=== PATIENT | female | born 1955 | race Caucasian/White ===

== ENCOUNTER 2021-09-01 14:35 | Inpatient (IN) ==
[2021-09-01] MEDS ORDERED: *HR* Adenosine 6 MG/2 ML SYRINGE IVP ONE (14:48)
[2021-09-01] MEDS ORDERED: 0.9 % Sodium Chloride 1,000 ML ONE (14:48)
[2021-09-01] MEDS ORDERED: Aspirin 325 MG TABLET PO ONE (14:54)
[2021-09-01] MEDS ORDERED: *HR* Adenosine 6 MG/2 ML VIAL IVP ONE (14:54)
[2021-09-01 15:26] LABS: Immature Granulocytes % 0.4 % (0-4)
[2021-09-01 15:27] LABS: Basophils % 0.2 %; Eosinophils # 0.3 K/mcL (0.0-0.6); Eosinophils % 2.3 %; Hematocrit 34.3 % (35.3-44.9); Hemoglobin 9.5 g/dL (11.5-15.4); Lymphocytes % 13.3 %; Mean Corpuscular HGB Conc 27.7 g/dL (31.6-35.5); Mean Corpuscular Hemoglobin 22.9 pg (28.0-33.3); Mean Corpuscular Volume 82.9 fL (83.0-100.0); Mean Platelet Volume 8.4 fL (9.4-12.4); Monocytes % 4.4 %; Platelet Count 640 K/mcL (140-400); Red Blood Count 4.14 M/mcL (3.82-4.97); Segmented Neutrophils % 79.4 %; White Blood Count 12.4 K/mcL (4.3-11.1)
[2021-09-01 15:41] LABS: INR 1.3; Prothrombin Time 14.6 Seconds (9.4-12.1)
[2021-09-01 15:43] LABS: BUN/Creatinine Ratio 15 (6-26); Blood Urea Nitrogen 17 mg/dL (8-23); Calcium 8.6 mg/dL (8.6-10.3); Carbon Dioxide 25 mEq/L (23-29); Chloride 101 mEq/L (98-107); Glucose 168 mg/dL (70-105); Magnesium 1.1 mg/dL (1.6-2.6); Osmolality,Calculated 293 (280-300); Potassium 3.2 mEq/L (3.5-5.1); Sodium 139 mEq/L (136-145); eGFR For African Americans > 60 (> 60); eGFR For Non-African Americans 50 (> 60)
[2021-09-01 15:44] LABS: Activated Partial Thrombo Time 30.2 Seconds (26.0-36.0); Troponin I < 0.03 ng/mL (< 0.04)
[2021-09-01 15:45] LABS: Lymphocytes # 1.7 K/mcL (0.6-4.6); Monocytes # 0.6 K/mcL (0.0-1.3); Neutrophils # 9.9 K/mcL (1.6-8.9)
[2021-09-01 15:56] LABS: Thyroid Stimulating Hormone 3.682 mcIU/mL (0.340-5.600)
[2021-09-01 16:51] LABS: Hypochromasia Present (Not Present); Microcytosis Present (Not Present); Platelet Estimate Marked Increase (Normal)
[2021-09-01] MEDS ORDERED: Potassium Chloride Elixir 20 MEQ/15 ML UDC PO ONE (17:29)
[2021-09-01] MEDS ORDERED: Ondansetron 4 MG/2 ML VIAL IVP PRN (17:52)
[2021-09-01] MEDS ORDERED: Naloxone 0.4 MG/ML INJ IVP PRN (17:52)
[2021-09-01] MEDS ORDERED: Dextrose Gel 15 GM/37.5 ML TUBE PO PRN ×2 (17:54)
[2021-09-01] MEDS ORDERED: D5% in Water 1,000 ML IVC PRN (17:54)
[2021-09-01] MEDS ORDERED: *HR* Dextrose 50 % in Water (Syg) 50 ML SYRINGE IVP PRN (17:54)
[2021-09-01] MEDS ORDERED: Perflutren Lipid Microsphere 1.3 ML in 0.9 % Sodium Chloride 8.7 ML IVP PRN (17:55)
[2021-09-01] MEDS: 0.9 % Sodium Chloride 1,000 ML IVC SCH (20:16)
[2021-09-01] MEDS: Melatonin 3 MG TABLET PO PRN (20:16)
[2021-09-01] MEDS: DilTIAZem 50 MG/50 ML IV.SOLN IVC SCH ×2 (20:17→23:37)
[2021-09-01] MEDS: *HR* Heparin 5,000 UNIT/ML VIAL SQ SCH (20:17)
[2021-09-02] MEDS: 0.9 % Sodium Chloride 1,000 ML IVC SCH (00:49)
[2021-09-02 02:39] LABS: Basophils % 0.3 %; Immature Granulocytes % 0.4 % (0-4); Mean Platelet Volume 8.4 fL (9.4-12.4)
[2021-09-02 02:40] LABS: Eosinophils # 0.3 K/mcL (0.0-0.6); Eosinophils % 3.2 %; Hematocrit 30.2 % (35.3-44.9); Hemoglobin 8.1 g/dL (11.5-15.4); Lymphocytes # 2.8 K/mcL (0.6-4.6); Mean Corpuscular HGB Conc 26.8 g/dL (31.6-35.5); Mean Corpuscular Hemoglobin 22.4 pg (28.0-33.3); Mean Corpuscular Volume 83.7 fL (83.0-100.0); Monocytes # 0.5 K/mcL (0.0-1.3); Monocytes % 4.9 %; Neutrophils # 5.9 K/mcL (1.6-8.9); Platelet Count 550 K/mcL (140-400); Red Blood Count 3.61 M/mcL (3.82-4.97); Red Cell Distribution Width 18.1 % (11.5-14.5); Segmented Neutrophils % 62.2 %; White Blood Count 9.5 K/mcL (4.3-11.1)
[2021-09-02 02:42] LABS: Hypochromasia Present (Not Present); Platelet Estimate Increased (Normal)
[2021-09-02 03:02] LABS: BUN/Creatinine Ratio 15 (6-26); Blood Urea Nitrogen 16 mg/dL (8-23); Calcium 8.1 mg/dL (8.6-10.3); Carbon Dioxide 27 mEq/L (23-29); Chloride 105 mEq/L (98-107); Glucose 98 mg/dL (70-105); Iron 19 mcg/dL (50-170); Lactate Dehydrogenase 139 Units/L (140-271); Magnesium 1.2 mg/dL (1.6-2.6); Osmolality,Calculated 293 (280-300); Phosphorous 3.5 mg/dL (2.7-4.5); Potassium 2.9 mEq/L (3.5-5.1); Sodium 141 mEq/L (136-145); eGFR For African Americans > 60 (> 60); eGFR For Non-African Americans 53 (> 60)
[2021-09-02 03:24] LABS: Folate 9.4 ng/mL (3.0-16.0)
[2021-09-02] MEDS: *HR* Heparin 5,000 UNIT/ML VIAL SQ SCH (05:36)
[2021-09-02] MEDS ORDERED: *HR* Heparin 5,000 UNIT/ML VIAL SQ SCH (06:00)
[2021-09-02] MEDS ORDERED: Isovue-370 500 ML BOTTLE IVP ONE (07:32)
[2021-09-02] MEDS ORDERED: Iron Sucrose Complex 400 MG in 0.9 % Sodium Chloride 250 ML IVPB ONE (07:33)
[2021-09-02] MEDS: Cyanocobalamin (B-12) 1,000 MCG/ML VIAL SQ SCH (09:20)
[2021-09-02] MEDS: Insulin LISPRO 300 UNITS/3 ML VIAL SUBQ SCH ×3 (09:20→17:41)
[2021-09-02 11:56] LABS: Adenovirus Not Detected (Not Detect); Bordetella Pertussis Not Detected (Not Detect); Chlamydophila pneumoniae Not Detected (Not Detect); Coronavirus 229E Not Detected (Not Detect); Coronavirus HKU1 Not Detected (Not Detect); Coronavirus NL63 Not Detected (Not Detect); Coronavirus OC43 Not Detected (Not Detect); Human Metapneumovirus Not Detected (Not Detect); Human Rhinovirus/Enterovirus Not Detected (Not Detect); Influenza A Subtype 2009 H1 Not Detected (Not Detect); Influenza B Not Detected (Not Detect); Mycoplasma pneumoniae Not Detected (Not Detect); Parainfluenza Virus 1 Not Detected (Not Detect); Parainfluenza Virus 2 Not Detected (Not Detect); Parainfluenza Virus 3 Not Detected (Not Detect); Parainfluenza Virus 4 Not Detected (Not Detect); Respiratory Syncytial Virus Not Detected (Not Detect); SARS-CoV-2 Not Detected (Not Detect)
[2021-09-02] MEDS ORDERED: *HR* Heparin 5,000 UNIT/ML VIAL IVP PRN ×2 (12:08)
[2021-09-02] MEDS ORDERED: Heparin 25,000 UNIT/250 ML 25,000 UNIT/250 ML IV.SOLN IVC SCH (12:15)
[2021-09-02 13:02] LABS: Heparin anti-factor XA UFH < 0.04 IU/mL (0.30-0.70)
[2021-09-02 13:03] LABS: INR 1.2; Prothrombin Time 13.1 Seconds (9.4-12.1)
[2021-09-02] MEDS: Furosemide 20 MG TABLET PO SCH (13:19)
[2021-09-02 14:01] LABS: Hemoglobin 8.5 g/dL (11.5-15.4); Immature Granulocytes % 0.3 % (0-4)
[2021-09-02 14:02] LABS: Basophils % 0.3 %; Eosinophils # 0.4 K/mcL (0.0-0.6); Eosinophils % 4.2 %; Hematocrit 30.8 % (35.3-44.9); Lymphocytes # 2.4 K/mcL (0.6-4.6); Lymphocytes % 27.7 %; Mean Corpuscular HGB Conc 27.6 g/dL (31.6-35.5); Mean Corpuscular Hemoglobin 23.1 pg (28.0-33.3); Mean Corpuscular Volume 83.7 fL (83.0-100.0); Mean Platelet Volume 8.3 fL (9.4-12.4); Monocytes # 0.4 K/mcL (0.0-1.3); Monocytes % 4.2 %; Neutrophils # 5.5 K/mcL (1.6-8.9); Platelet Count 510 K/mcL (140-400); Red Blood Count 3.68 M/mcL (3.82-4.97); Segmented Neutrophils % 63.3 %; White Blood Count 8.7 K/mcL (4.3-11.1)
[2021-09-02 14:49] LABS: Anisocytosis 1+ (Not Present); Hypochromasia Present (Not Present); Platelet Estimate Normal (Normal); Poikilocytosis 1+ (Not Present)
[2021-09-02] MEDS: Gabapentin 300 MG CAPSULE PO SCH ×2 (15:32→20:56)
[2021-09-02] MEDS: Melatonin 3 MG TABLET PO PRN (20:55)
[2021-09-02] MEDS: Melatonin 3 MG TABLET PO SCH (22:20)
[2021-09-03 01:55] LABS: Bacteria,Urine Few per hpf (None-Few); Bilirubin,Urine Negative (Negative); Blood,Urine Moderate (Negative); Clarity,Urine Turbid (Clear); Color,Urine Light-Yellow (Yellow); Glucose,Urine (UA) Normal (Normal); Ketones,Urine Negative (Negative); Leukocyte Esterase,Urine Large (Negative); Mucus,Urine Many per lpf (None-Few); Nitrite,Urine Negative (Negative); Protein,Urine Trace mg/dL (Neg-Trace); RBC,Urine 30-50 per hpf (0-3); Specific Gravity,Urine 1.016 (1.010-1.025); Urobilinogen,Urine Normal (Normal); WBC,Urine 50-100 per hpf (0-3)
[2021-09-03 05:09] LABS: Hematocrit 29.1 % (35.3-44.9); Mean Corpuscular HGB Conc 27.5 g/dL (31.6-35.5); Mean Corpuscular Hemoglobin 22.7 pg (28.0-33.3); Mean Corpuscular Volume 82.7 fL (83.0-100.0); Mean Platelet Volume 8.7 fL (9.4-12.4); Platelet Count 502 K/mcL (140-400); Red Blood Count 3.52 M/mcL (3.82-4.97); Red Cell Distribution Width 18.1 % (11.5-14.5); White Blood Count 9.7 K/mcL (4.3-11.1)
[2021-09-03 05:17] LABS: BUN/Creatinine Ratio 14 (6-26); Blood Urea Nitrogen 12 mg/dL (8-23); Carbon Dioxide 26 mEq/L (23-29); Chloride 105 mEq/L (98-107); Glucose 100 mg/dL (70-105); Osmolality,Calculated 290 (280-300); Potassium 2.9 mEq/L (3.5-5.1); Sodium 140 mEq/L (136-145); eGFR For African Americans > 60 (> 60); eGFR For Non-African Americans > 60 (> 60)
[2021-09-03] MEDS: Insulin LISPRO 300 UNITS/3 ML VIAL SUBQ SCH ×3 (07:28→17:02)
[2021-09-03] MEDS: Gabapentin 300 MG CAPSULE PO SCH ×3 (07:29→21:39)
[2021-09-03] MEDS: Cyanocobalamin (B-12) 1,000 MCG/ML VIAL SQ SCH (07:30)
[2021-09-03] MEDS: BuPROPion XL (24 HR) 150 MG TABLET PO SCH (07:40)
[2021-09-03] MEDS: Isosorbide MONOnitrate (24 HR) 30 MG TAB.ER.24H PO SCH (07:40)
[2021-09-03] MEDS: ARIPiprazole 5 MG TABLET PO SCH (07:41)
[2021-09-03] MEDS ORDERED: Magnesium Sulfate 2 GM in D5% in Water 100 ML IVPB ONE (08:36)
[2021-09-03 11:04] LABS: Red Cell Distribution Width 18.1 % (11.5-14.5)
[2021-09-03 11:05] LABS: Basophils % 0.2 %; Eosinophils # 0.3 K/mcL (0.0-0.6); Eosinophils % 2.8 %; Hematocrit 28.1 % (35.3-44.9); Hemoglobin 7.7 g/dL (11.5-15.4); Immature Granulocytes % 0.2 % (0-4); Lymphocytes # 1.2 K/mcL (0.6-4.6); Lymphocytes % 12.3 %; Mean Corpuscular HGB Conc 27.4 g/dL (31.6-35.5); Mean Corpuscular Hemoglobin 23.4 pg (28.0-33.3); Mean Corpuscular Volume 85.4 fL (83.0-100.0); Mean Platelet Volume 8.6 fL (9.4-12.4); Monocytes # 0.4 K/mcL (0.0-1.3); Monocytes % 4.1 %; Platelet Count 487 K/mcL (140-400); Red Blood Count 3.29 M/mcL (3.82-4.97); Segmented Neutrophils % 80.4 %; White Blood Count 9.9 K/mcL (4.3-11.1)
[2021-09-03 11:22] LABS: BUN/Creatinine Ratio 11 (6-26); Blood Urea Nitrogen 11 mg/dL (8-23); Calcium 7.9 mg/dL (8.6-10.3); Carbon Dioxide 29 mEq/L (23-29); Chloride 102 mEq/L (98-107); Glucose 201 mg/dL (70-105); Osmolality,Calculated 289 (280-300); Potassium 3.3 mEq/L (3.5-5.1); Sodium 137 mEq/L (136-145); eGFR For African Americans > 60 (> 60); eGFR For Non-African Americans 59 (> 60)
[2021-09-03 11:40] LABS: Hypochromasia Present (Not Present); Platelet Estimate Increased (Normal)
[2021-09-03] MEDS: *HR* Heparin 5,000 UNIT/ML VIAL SQ SCH (17:32)
[2021-09-03] MEDS: Acetaminophen 325 MG TABLET PO PRN (17:46)
[2021-09-03] MEDS: Melatonin 3 MG TABLET PO SCH (21:39)
[2021-09-04 02:08] LABS: Basophils % 0.5 %; Hemoglobin 8.4 g/dL (11.5-15.4); Nucleated Red Blood Cells 0.5 /100 WBC (0)
[2021-09-04 02:10] LABS: Basophils # 0.1 K/mcL (0.0-0.2); Eosinophils # 0.1 K/mcL (0.0-0.6); Hematocrit 29.2 % (35.3-44.9); Immature Granulocytes % 2.9 % (0-4); Lymphocytes # 1.9 K/mcL (0.6-4.6); Lymphocytes % 16.2 %; Mean Corpuscular HGB Conc 28.8 g/dL (31.6-35.5); Mean Corpuscular Hemoglobin 23.5 pg (28.0-33.3); Mean Corpuscular Volume 81.6 fL (83.0-100.0); Mean Platelet Volume 8.8 fL (9.4-12.4); Monocytes # 0.8 K/mcL (0.0-1.3); Monocytes % 6.9 %; Neutrophils # 8.6 K/mcL (1.6-8.9); Platelet Count 439 K/mcL (140-400); Red Blood Count 3.58 M/mcL (3.82-4.97); Red Cell Distribution Width 18.2 % (11.5-14.5); Segmented Neutrophils % 72.5 %; White Blood Count 11.8 K/mcL (4.3-11.1)
[2021-09-04 02:55] LABS: Anisocytosis 1+ (Not Present); Hypochromasia Present (Not Present); Platelet Estimate Normal (Normal)
[2021-09-04] MEDS: Acetaminophen 325 MG TABLET PO PRN ×2 (03:55→22:30)
[2021-09-04] MEDS: *HR* Heparin 5,000 UNIT/ML VIAL SQ SCH ×2 (05:43→17:37)
[2021-09-04] MEDS: Insulin LISPRO 300 UNITS/3 ML VIAL SUBQ SCH ×3 (07:51→17:37)
[2021-09-04] MEDS: Isosorbide MONOnitrate (24 HR) 30 MG TAB.ER.24H PO SCH (08:00)
[2021-09-04] MEDS: ARIPiprazole 5 MG TABLET PO SCH (08:00)
[2021-09-04] MEDS: Aspirin 81 MG TAB.CHEW PO SCH (08:00)
[2021-09-04] MEDS: Gabapentin 300 MG CAPSULE PO SCH ×3 (08:00→21:11)
[2021-09-04] MEDS: Cyanocobalamin (B-12) 1,000 MCG/ML VIAL SQ SCH (08:01)
[2021-09-04] MEDS: BuPROPion XL (24 HR) 150 MG TABLET PO SCH (08:01)
[2021-09-04 10:36] LABS: BUN/Creatinine Ratio 10 (6-26); Blood Urea Nitrogen 10 mg/dL (8-23); Calcium 8.2 mg/dL (8.6-10.3); Carbon Dioxide 29 mEq/L (23-29); Chloride 101 mEq/L (98-107); Glucose 163 mg/dL (70-105); Osmolality,Calculated 283 (280-300); Potassium 3.7 mEq/L (3.5-5.1); Sodium 135 mEq/L (136-145); eGFR For African Americans > 60 (> 60); eGFR For Non-African Americans 53 (> 60)
[2021-09-04] MEDS: metroNIDAZOLE 500 MG TABLET PO SCH ×2 (11:08→16:29)
[2021-09-04] MEDS: Furosemide 20 MG TABLET PO SCH (11:09)
[2021-09-04] MEDS: levoFLOXacin 750 MG TABLET PO SCH (11:09)
[2021-09-04 19:41] LABS: Ferritin 21 ng/mL (10-120)
[2021-09-04] MEDS: Melatonin 3 MG TABLET PO SCH (21:12)
[2021-09-05 03:17] LABS: Basophils % 0.3 %; Eosinophils % 0.4 %; Mean Corpuscular Volume 84.5 fL (83.0-100.0)
[2021-09-05 03:18] LABS: Hematocrit 27.7 % (35.3-44.9); Hemoglobin 7.5 g/dL (11.5-15.4); Immature Granulocytes % 0.7 % (0-4); Lymphocytes # 1.5 K/mcL (0.6-4.6); Lymphocytes % 21.2 %; Mean Corpuscular HGB Conc 27.1 g/dL (31.6-35.5); Mean Corpuscular Hemoglobin 22.9 pg (28.0-33.3); Mean Platelet Volume 8.7 fL (9.4-12.4); Monocytes # 0.4 K/mcL (0.0-1.3); Neutrophils # 4.9 K/mcL (1.6-8.9); Platelet Count 340 K/mcL (140-400); Red Blood Count 3.28 M/mcL (3.82-4.97); Red Cell Distribution Width 18.6 % (11.5-14.5); Segmented Neutrophils % 71.4 %; White Blood Count 6.9 K/mcL (4.3-11.1)
[2021-09-05] MEDS: *HR* Heparin 5,000 UNIT/ML VIAL SQ SCH (05:34)
[2021-09-05 06:45] LABS: Hypochromasia Present (Not Present); Platelet Estimate Normal (Normal)
[2021-09-05 06:46] LABS: Anisocytosis 1+ (Not Present)
[2021-09-05 07:53] VITALS: O2SAT 92
[2021-09-05] MEDS: levoFLOXacin 750 MG TABLET PO SCH (08:48)
[2021-09-05] MEDS: Gabapentin 300 MG CAPSULE PO SCH ×2 (08:48→14:21)
[2021-09-05] MEDS: Aspirin 81 MG TAB.CHEW PO SCH (08:49)
[2021-09-05] MEDS: Isosorbide MONOnitrate (24 HR) 30 MG TAB.ER.24H PO SCH (08:49)
[2021-09-05] MEDS: BuPROPion XL (24 HR) 150 MG TABLET PO SCH (08:50)
[2021-09-05] MEDS: ARIPiprazole 5 MG TABLET PO SCH (08:50)
[2021-09-05] MEDS: Insulin LISPRO 300 UNITS/3 ML VIAL SUBQ SCH ×2 (08:50→12:24)
[2021-09-05] MEDS: Cyanocobalamin (B-12) 1,000 MCG/ML VIAL SQ SCH (08:52)
[2021-09-05 09:34] LABS: Hematocrit 28.2 % (35.3-44.9); Hemoglobin 7.8 g/dL (11.5-15.4)
[2021-09-05 09:53] LABS: BUN/Creatinine Ratio 13 (6-26); Blood Urea Nitrogen 13 mg/dL (8-23); Calcium 7.9 mg/dL (8.6-10.3); Carbon Dioxide 27 mEq/L (23-29); Chloride 98 mEq/L (98-107); Glucose 177 mg/dL (70-105); Osmolality,Calculated 278 (280-300); Potassium 3.8 mEq/L (3.5-5.1); Sodium 132 mEq/L (136-145); eGFR For African Americans > 60 (> 60); eGFR For Non-African Americans 56 (> 60)
[2021-09-05 10:06] LABS: Influenza A PCR Negative (Negative); Influenza B PCR Negative (Negative); Resp. Syncytial Virus PCR Negative (Negative); SARS-CoV-2 by PCR (In House) Negative (Negative)
[2021-09-05 15:20] LABS: % Iron Saturation 5 % (15-50); Transferrin 254 mg/dL (200-400)
[2021-09-05 15:24] VITALS: BP 102/50; PULSE 62; TEMP 98.5
== END 2021-09-05 16:20 | DRG 308 ==
LOC: EMEROOARM 14:35 → 3BNU 14:35 → SUATTDRO 17:54 → 3BNU 18:45
PROVIDERS: ADMIT Internal Medicine; ATTEND Student in an Organized Health Care Education/Training Program

== ENCOUNTER 2021-09-08 05:25 | Inpatient (IN) ==
[2021-09-08 06:47] LABS: Basophils % 0.1 %; Hemoglobin 7.6 g/dL (11.5-15.4); Mean Platelet Volume 9.5 fL (9.4-12.4)
[2021-09-08 06:48] LABS: Eosinophils % 0.4 %; Immature Granulocytes % 1.2 % (0-4); Lymphocytes # 0.7 K/mcL (0.6-4.6); Lymphocytes % 8.7 %; Mean Corpuscular HGB Conc 28.1 g/dL (31.6-35.5); Mean Corpuscular Hemoglobin 23.2 pg (28.0-33.3); Mean Corpuscular Volume 82.3 fL (83.0-100.0); Monocytes # 0.3 K/mcL (0.0-1.3); Monocytes % 3.4 %; Neutrophils # 7.2 K/mcL (1.6-8.9); Platelet Count 215 K/mcL (140-400); Red Blood Count 3.28 M/mcL (3.82-4.97); Red Cell Distribution Width 19.4 % (11.5-14.5); Segmented Neutrophils % 86.2 %; White Blood Count 8.3 K/mcL (4.3-11.1)
[2021-09-08 06:55] LABS: INR 1.6; Prothrombin Time 17.7 Seconds (9.4-12.1)
[2021-09-08 06:57] LABS: Activated Partial Thrombo Time 23.7 Seconds (26.0-36.0)
[2021-09-08 07:04] LABS: Anisocytosis 1+ (Not Present); Hypochromasia Present (Not Present)
[2021-09-08 07:06] LABS: Reactive Lymphocytes Present (Not Present)
[2021-09-08 07:07] LABS: Platelet Estimate Normal (Normal)
[2021-09-08 07:19] LABS: Albumin 2.8 g/dL (3.5-5.7); Albumin/Globulin Ratio 0.9 (1.1-2.2); Bilirubin,Direct 0.3 mg/dL (0.0-0.2); Bilirubin,Indirect 0.4 mg/dL (0.0-1.0); Bilirubin,Total 0.7 mg/dL (0.3-1.0); Calcium 7.6 mg/dL (8.6-10.3); Globulin 3.2 g/dL (2.4-3.5); Potassium 4.2 mEq/L (3.5-5.1); Troponin I 0.06 ng/mL (< 0.04)
[2021-09-08 07:58] LABS: Influenza A PCR Negative (Negative); Influenza B PCR Negative (Negative); Resp. Syncytial Virus PCR Negative (Negative)
[2021-09-08 08:00] LABS: SARS-CoV-2 by PCR (In House) Negative (Negative)
[2021-09-08] MEDS ORDERED: 0.9 % Sodium Chloride 500 ML IVC ONE ×2 (08:05→08:16)
[2021-09-08] MEDS ORDERED: 0.9 % Sodium Chloride 1,000 ML IVC SCH ×2 (08:15→12:30)
[2021-09-08] MEDS ORDERED: 0.9 % Sodium Chloride 1,000 ML IVC ONE (08:15)
[2021-09-08] MEDS ORDERED: cefTRIAXone 1,000 MG in 0.9 % Sodium Chloride Mini Bag 100 ML IVPB ONE (09:32)
[2021-09-08] MEDS ORDERED: Azithromycin 500 MG in 0.9 % Sodium Chloride 250 ML IVPB ONE (09:32)
[2021-09-08] MEDS ORDERED: Ipratropium/Albuterol Neb 3 ML IH ONE (09:35)
[2021-09-08] MEDS ORDERED: Naloxone 0.4 MG/ML INJ IVP PRN (09:54)
[2021-09-08] MEDS ORDERED: Ondansetron 4 MG/2 ML VIAL IVP PRN (09:54)
[2021-09-08] MEDS ORDERED: *HR* Dextrose 50 % in Water (Syg) 50 ML SYRINGE IVP PRN (10:34)
[2021-09-08] MEDS ORDERED: Dextrose Gel 15 GM/37.5 ML TUBE PO PRN ×2 (10:34)
[2021-09-08] MEDS ORDERED: D5% in Water 1,000 ML IVC PRN (10:34)
[2021-09-08] MEDS: Insulin LISPRO 300 UNITS/3 ML VIAL SUBQ SCH ×3 (12:58→21:00)
[2021-09-08] MEDS ORDERED: Acetaminophen 325 MG TABLET PO PRN (14:40)
[2021-09-08] MEDS ORDERED: *HR* Metoprolol 5 MG/5 ML VIAL IVP ONE (15:41)
[2021-09-08 16:11] LABS: ABG Base Excess -4 mEq/L (-2 to 3); ABG HCO3 20 mEq/L (21-27); ABG Oxygen Saturation 98 % (95-98); ABG PCO2 32 mmHg (35-45); ABG PO2 97 mmHg (85-104); ABG TCO2 21 mEq/L (20-26); Blood Gas Modality BiLevel; Blood Gas Pressure Support 14 cm H2O
[2021-09-08] MEDS ORDERED: Acetaminophen 650 MG RECTAL SUPP RC PRN (16:48)
[2021-09-08 18:22] LABS: Calcium 7.1 mg/dL (8.6-10.3); Potassium 4.2 mEq/L (3.5-5.1)
[2021-09-08 19:11] LABS: Bacteria,Urine Many per hpf (None-Few); Bilirubin,Urine Negative (Negative); Blood,Urine Moderate (Negative); Clarity,Urine Ex.Turbid (Clear); Color,Urine Yellow (Yellow); Glucose,Urine (UA) Normal (Normal); Ketones,Urine Negative (Negative); Leukocyte Esterase,Urine Large (Negative); Mucus,Urine Many per lpf (None-Few); Nitrite,Urine Negative (Negative); PH,Urine 5.5 pH Units (5.0-8.0); Protein,Urine 100 mg/dL (Neg-Trace); RBC,Urine 30-50 per hpf (0-3); Specific Gravity,Urine 1.017 (1.010-1.025); Squamous Epithelial Cell,Urine Moderate per hpf (None-Few); Urobilinogen,Urine Normal (Normal); WBC,Urine TNTC per hpf (0-3)
[2021-09-08] MEDS ORDERED: *HR* Heparin 5,000 UNIT/ML VIAL IVP PRN ×2 (21:57)
[2021-09-08] MEDS ORDERED: *HR* Heparin 5,000 UNIT/ML VIAL IVP ONE (21:57)
[2021-09-08] MEDS: Melatonin 3 MG TABLET PO SCH (22:37)
[2021-09-08] MEDS: Nystatin POWDER 30 GM BOTTLE TP SCH (22:37)
[2021-09-08 22:47] LABS: Hemoglobin 6.9 g/dL (11.5-15.4); Mean Platelet Volume 9.8 fL (9.4-12.4)
[2021-09-08 22:48] LABS: Hematocrit 23.8 % (35.3-44.9); Mean Corpuscular Hemoglobin 23.4 pg (28.0-33.3); Mean Corpuscular Volume 80.7 fL (83.0-100.0); Platelet Count 163 K/mcL (140-400); Red Blood Count 2.95 M/mcL (3.82-4.97); Red Cell Distribution Width 18.9 % (11.5-14.5); White Blood Count 9.5 K/mcL (4.3-11.1)
[2021-09-08] MEDS ORDERED: Albumin 25% 25gram/100mL 25 GM/100 ML IV.SOLN IVPB ONE (22:56)
[2021-09-08 23:09] LABS: Heparin anti-factor XA UFH < 0.04 IU/mL (0.30-0.70); INR 1.6; Prothrombin Time 17.9 Seconds (9.4-12.1)
[2021-09-08 23:11] LABS: Activated Partial Thrombo Time 29.4 Seconds (26.0-36.0)
[2021-09-09] MEDS ORDERED: cefTRIAXone 2,000 MG in 0.9 % Sodium Chloride Mini Bag 100 ML IVPB SCH
[2021-09-09] MEDS ORDERED: Albumin 25% 25gram/100mL 25 GM/100 ML IV.SOLN IVPB ONE ×2 (00:05→06:37)
[2021-09-09] MEDS: Acetaminophen IV 1,000 MG/100 ML BAG IVPB SCH ×3 (00:13→13:11)
[2021-09-09 01:11] LABS: Acinetobacter baumannii by PCR Not Detected (Not Detect); Candida albicans by PCR Not Detected (Not Detect); Candida glabrata by PCR Not Detected (Not Detect); Candida krusei by PCR Not Detected (Not Detect); Candida parapsilosis by PCR Not Detected (Not Detect); Candida tropicalis by PCR Not Detected (Not Detect); Enterobacter cloacae Cmplx PCR Not Detected (Not Detect); Enterobacteriaceae by PCR Not Detected (Not Detect); Enterococcus by PCR Not Detected (Not Detect); Escherichia coli by PCR Not Detected (Not Detect); Klebsiella oxytoca by PCR Not Detected (Not Detect); Klebsiella pneumoniae by PCR Not Detected (Not Detect); Proteus by PCR Not Detected (Not Detect); Pseudomonas aeruginosa by PCR Not Detected (Not Detect); Serratia marcescens by PCR Not Detected (Not Detect); Staphylococcus aureus by PCR DETECTED (Not Detect); Streptococcus agalactiae(B)PCR Not Detected (Not Detect); Streptococcus by PCR Not Detected (Not Detect); Streptococcus pneumoniae PCR Not Detected (Not Detect); Streptococcus pyogenes (A) PCR Not Detected (Not Detect); blaKPC Carbapenem-Resist Gene Not Detected (Not Detect); mecA Methicillin-Resist Gene DETECTED (Not Detect); vanA/B Vancomycin-Resist Genes Not Detected (Not Detect)
[2021-09-09] MEDS ORDERED: Vancomycin 1,750 MG in 0.9 % Sodium Chloride 250 ML IVPB SCH (02:00)
[2021-09-09] MEDS ORDERED: Vancomycin 1,750 MG/517.5 ML IV.SOLN IVPB ONE (02:00)
[2021-09-09 02:38] LABS: Basophils % 0.2 %
[2021-09-09 02:39] LABS: Hematocrit 20.9 % (35.3-44.9); Hemoglobin 6.1 g/dL (11.5-15.4); Immature Granulocytes % 1.8 % (0-4); Lymphocytes # 1.2 K/mcL (0.6-4.6); Lymphocytes % 17.7 %; Mean Corpuscular HGB Conc 29.2 g/dL (31.6-35.5); Mean Corpuscular Hemoglobin 23.6 pg (28.0-33.3); Mean Platelet Volume 10.1 fL (9.4-12.4); Monocytes # 0.4 K/mcL (0.0-1.3); Monocytes % 5.3 %; Nucleated Red Blood Cells 0.3 /100 WBC (0); Platelet Count 145 K/mcL (140-400); Red Blood Count 2.58 M/mcL (3.82-4.97); Red Cell Distribution Width 19.3 % (11.5-14.5); White Blood Count 6.7 K/mcL (4.3-11.1)
[2021-09-09 02:45] LABS: Magnesium 1.2 mg/dL (1.6-2.6); Potassium 3.6 mEq/L (3.5-5.1)
[2021-09-09 02:53] LABS: Hypochromasia Present (Not Present)
[2021-09-09 02:54] LABS: Platelet Estimate Normal (Normal); Reactive Lymphocytes Present (Not Present)
[2021-09-09] MEDS: Heparin 25,000UNIT/250ML 1/2NS 25,000 UNIT/250 ML IV.SOLN IVC SCH (03:24)
[2021-09-09] MEDS ORDERED: 0.9 % Sodium Chloride 500 ML ONE (04:01)
[2021-09-09] MEDS: Calcium Gluconate 1gm/50mL 1 GM/50 ML BAG IVPB SCH ×2 (04:32→05:47)
[2021-09-09 06:21] LABS: Albumin 2.8 g/dL (3.5-5.7)
[2021-09-09] MEDS: Insulin LISPRO 300 UNITS/3 ML VIAL SUBQ SCH ×4 (07:51→19:38)
[2021-09-09 08:28] LABS: Calcium 7.6 mg/dL (8.6-10.3); Potassium 3.7 mEq/L (3.5-5.1); Troponin I 0.24 ng/mL (< 0.04)
[2021-09-09 09:34] LABS: Hematocrit 25.6 % (35.3-44.9); Hemoglobin 7.4 g/dL (11.5-15.4)
[2021-09-09 09:42] LABS: Estimated Average Glucose 189 mg/dl; Hemoglobin A1C 8.2 %
[2021-09-09] MEDS: ARIPiprazole 5 MG TABLET PO SCH (10:01)
[2021-09-09] MEDS: Aspirin 81 MG TAB.CHEW PO SCH (10:01)
[2021-09-09] MEDS: Nystatin POWDER 30 GM BOTTLE TP SCH ×2 (10:02→19:41)
[2021-09-09] MEDS: BuPROPion XL (24 HR) 150 MG TABLET PO SCH (10:02)
[2021-09-09] MEDS: Isosorbide MONOnitrate (24 HR) 30 MG TAB.ER.24H PO SCH (10:02)
[2021-09-09 10:33] LABS: Uric Acid 8.5 mg/dL (2.3-7.6)
[2021-09-09 10:36] LABS: Hepatitis B Surface Antibody < 3.10 mIU/mL
[2021-09-09] MEDS ORDERED: 0.9 % Sodium Chloride 250 ML IVC PRN (10:39)
[2021-09-09] MEDS ORDERED: *HR* Heparin 10,000 UNIT/10 ML VIAL IV PRN (10:39)
[2021-09-09] MEDS ORDERED: 0.9 % Sodium Chloride 1,000 ML PRIME SCH (10:45)
[2021-09-09 10:47] LABS: Hepatitis B Surface Antigen Nonreactive (Nonreactive)
[2021-09-09] MEDS ORDERED: Heparin 1,000 UNITS/500 mL 500 ML ONE (10:57)
[2021-09-09] MEDS: Cyanocobalamin (B-12) 1,000 MCG/ML VIAL SQ SCH (10:57)
[2021-09-09] MEDS ORDERED: *HR* Heparin 5,000 UNIT/ML VIAL ONE (11:29)
[2021-09-09 15:39] LABS: Complement C3 120 mg/dL (87-200)
[2021-09-09] MEDS ORDERED: *HR* Metoprolol 5 MG/5 ML VIAL IVP PRN (16:21)
[2021-09-09] MEDS: Ceftaroline Fosamil Acetate 300 MG in 0.9 % Sodium Chloride 50 ML IVPB SCH (17:04)
[2021-09-09 17:14] LABS: ABG Base Excess -2 mEq/L (-2 to 3); ABG HCO3 22 mEq/L (21-27); ABG Oxygen Saturation 98 % (95-98); ABG PCO2 36 mmHg (35-45); ABG PO2 103 mmHg (85-104); ABG TCO2 23 mEq/L (20-26)
[2021-09-09] MEDS: MetroNIDAZOLE 500 MG/100 ML 500 MG/100 ML BAG IVPB SCH (17:44)
[2021-09-09 18:56] LABS: Hematocrit 23.8 % (35.3-44.9); Hemoglobin 7.2 g/dL (11.5-15.4)
[2021-09-09] MEDS: Melatonin 3 MG TABLET PO SCH (19:40)
[2021-09-10] MEDS: Ceftaroline Fosamil Acetate 300 MG in 0.9 % Sodium Chloride 50 ML IVPB SCH ×2 (00:10→09:29)
[2021-09-10 01:06] LABS: Hematocrit 25.9 % (35.3-44.9); Hemoglobin 7.6 g/dL (11.5-15.4)
[2021-09-10] MEDS: MetroNIDAZOLE 500 MG/100 ML 500 MG/100 ML BAG IVPB SCH ×3 (01:10→16:33)
[2021-09-10 01:30] LABS: Iron < 10 mcg/dL (50-170); Vancomycin,Trough 11 mcg/mL (5-10)
[2021-09-10 06:54] LABS: Protein/Creatinine Ratio,Urine 1.99 mg/mg (0.00-0.20); Sodium, Urine 26.2 mEq/L
[2021-09-10] MEDS: Insulin LISPRO 300 UNITS/3 ML VIAL SUBQ SCH ×4 (07:27→20:40)
[2021-09-10] MEDS: ARIPiprazole 5 MG TABLET PO SCH (09:29)
[2021-09-10] MEDS: Aspirin 81 MG TAB.CHEW PO SCH (09:29)
[2021-09-10] MEDS: *HR* Metoprolol 5 MG/5 ML VIAL IVP SCH ×3 (09:30→21:07)
[2021-09-10] MEDS: Nystatin POWDER 30 GM BOTTLE TP SCH ×2 (09:30→21:07)
[2021-09-10] MEDS: Cyanocobalamin (B-12) 1,000 MCG/ML VIAL SQ SCH (09:30)
[2021-09-10] MEDS: Isosorbide MONOnitrate (24 HR) 30 MG TAB.ER.24H PO SCH (09:30)
[2021-09-10] MEDS: BuPROPion XL (24 HR) 150 MG TABLET PO SCH (09:31)
[2021-09-10 10:01] LABS: Hematocrit 26.8 % (35.3-44.9); Hemoglobin 7.8 g/dL (11.5-15.4); Mean Corpuscular HGB Conc 29.1 g/dL (31.6-35.5); Mean Corpuscular Hemoglobin 23.6 pg (28.0-33.3); Mean Corpuscular Volume 81.2 fL (83.0-100.0); Mean Platelet Volume 10.4 fL (9.4-12.4); Platelet Count 122 K/mcL (140-400); Red Cell Distribution Width 19.2 % (11.5-14.5); White Blood Count 8.1 K/mcL (4.3-11.1)
[2021-09-10 10:20] LABS: Calcium 8.1 mg/dL (8.6-10.3); Potassium 3.7 mEq/L (3.5-5.1)
[2021-09-10 10:38] LABS: Monocytes # 0.3 K/mcL (0.0-1.3); Neutrophils # 6.8 K/mcL (1.6-8.9)
[2021-09-10 10:40] LABS: Platelet Estimate Slight Decrease (Normal); Reactive Lymphocytes Present (Not Present)
[2021-09-10 10:41] LABS: Anisocytosis 1+ (Not Present)
[2021-09-10 10:42] LABS: Hypochromasia Present (Not Present)
[2021-09-10 10:43] LABS: Poikilocytosis 1+ (Not Present)
[2021-09-10] MEDS ORDERED: Iron Sucrose Complex 400 MG in 0.9 % Sodium Chloride 250 ML IVPB ONE (11:00)
[2021-09-10] MEDS: Acetaminophen 650 MG RECTAL SUPP RC PRN ×2 (13:08→21:07)
[2021-09-10] MEDS: Ceftaroline Fosamil Acetate 400 MG in 0.9 % Sodium Chloride 50 ML IVPB SCH (16:33)
[2021-09-10] MEDS: Melatonin 3 MG TABLET PO SCH (20:40)
[2021-09-11] MEDS: Ceftaroline Fosamil Acetate 400 MG in 0.9 % Sodium Chloride 50 ML IVPB SCH ×3 (00:47→15:59)
[2021-09-11] MEDS: MetroNIDAZOLE 500 MG/100 ML 500 MG/100 ML BAG IVPB SCH ×3 (01:40→16:00)
[2021-09-11] MEDS: *HR* Metoprolol 5 MG/5 ML VIAL IVP SCH ×4 (05:06→20:46)
[2021-09-11 05:36] LABS: Basophils % 0.1 %; Hematocrit 26.7 % (35.3-44.9); Hemoglobin 7.9 g/dL (11.5-15.4); Lymphocytes # 1.5 K/mcL (0.6-4.6); Lymphocytes % 16.4 %; Mean Corpuscular HGB Conc 29.6 g/dL (31.6-35.5); Mean Corpuscular Hemoglobin 24.5 pg (28.0-33.3); Mean Corpuscular Volume 82.9 fL (83.0-100.0); Monocytes # 0.7 K/mcL (0.0-1.3); Monocytes % 6.9 %; Neutrophils # 7.1 K/mcL (1.6-8.9); Platelet Count 119 K/mcL (140-400); Red Blood Count 3.22 M/mcL (3.82-4.97); Red Cell Distribution Width 19.5 % (11.5-14.5); Segmented Neutrophils % 75.6 %; White Blood Count 9.4 K/mcL (4.3-11.1)
[2021-09-11 05:50] LABS: Calcium 8.4 mg/dL (8.6-10.3); Potassium 3.9 mEq/L (3.5-5.1)
[2021-09-11 06:11] LABS: Platelet Estimate Slight Decrease (Normal); Reactive Lymphocytes Present (Not Present)
[2021-09-11 06:12] LABS: Hypochromasia Present (Not Present)
[2021-09-11] MEDS: Cyanocobalamin (B-12) 1,000 MCG/ML VIAL SQ SCH (07:51)
[2021-09-11] MEDS: Insulin LISPRO 300 UNITS/3 ML VIAL SUBQ SCH ×4 (07:52→20:46)
[2021-09-11] MEDS: ARIPiprazole 5 MG TABLET PO SCH (09:58)
[2021-09-11] MEDS: Aspirin 81 MG TAB.CHEW PO SCH (09:59)
[2021-09-11] MEDS: BuPROPion XL (24 HR) 150 MG TABLET PO SCH (09:59)
[2021-09-11] MEDS: Isosorbide MONOnitrate (24 HR) 30 MG TAB.ER.24H PO SCH (09:59)
[2021-09-11 10:41] LABS: ABG Base Excess 1 mEq/L (-2 to 3); ABG HCO3 27 mEq/L (21-27); ABG Oxygen Saturation 99 % (95-98); ABG PCO2 45 mmHg (35-45); ABG PH 7.38 pH Units (7.32-7.45); ABG PO2 131 mmHg (85-104); ABG TCO2 28 mEq/L (20-26)
[2021-09-11] MEDS: Nystatin POWDER 30 GM BOTTLE TP SCH ×2 (10:54→20:47)
[2021-09-11] MEDS: Acetaminophen 650 MG RECTAL SUPP RC PRN ×2 (11:56→23:43)
[2021-09-11] MEDS: DAPTOmycin 650 MG in 0.9 % Sodium Chloride 100 ML IVPB SCH (17:27)
[2021-09-11 17:43] LABS: Hematocrit 27.6 % (35.3-44.9)
[2021-09-11] MEDS: Heparin 25,000UNIT/250ML 1/2NS 25,000 UNIT/250 ML IV.SOLN IVC SCH (20:43)
[2021-09-11] MEDS: Melatonin 3 MG TABLET PO SCH (20:46)
[2021-09-12] MEDS: Ceftaroline Fosamil Acetate 400 MG in 0.9 % Sodium Chloride 50 ML IVPB SCH ×2 (00:20→07:38)
[2021-09-12] MEDS: MetroNIDAZOLE 500 MG/100 ML 500 MG/100 ML BAG IVPB SCH ×3 (00:21→17:26)
[2021-09-12 03:08] LABS: Basophils % 0.2 %; Nucleated Red Blood Cells 0.2 /100 WBC (0)
[2021-09-12 03:10] LABS: Eosinophils % 0.2 %; Hematocrit 30.2 % (35.3-44.9); Hemoglobin 8.7 g/dL (11.5-15.4); Immature Granulocytes % 1.1 % (0-4); Lymphocytes # 1.9 K/mcL (0.6-4.6); Lymphocytes % 18.5 %; Mean Corpuscular HGB Conc 28.8 g/dL (31.6-35.5); Mean Corpuscular Hemoglobin 24.3 pg (28.0-33.3); Mean Corpuscular Volume 84.4 fL (83.0-100.0); Mean Platelet Volume 11.1 fL (9.4-12.4); Monocytes # 0.7 K/mcL (0.0-1.3); Monocytes % 6.6 %; Neutrophils # 7.5 K/mcL (1.6-8.9); Platelet Count 130 K/mcL (140-400); Red Blood Count 3.58 M/mcL (3.82-4.97); Segmented Neutrophils % 73.4 %; White Blood Count 10.2 K/mcL (4.3-11.1)
[2021-09-12 03:26] LABS: Calcium 8.5 mg/dL (8.6-10.3); Potassium 3.6 mEq/L (3.5-5.1)
[2021-09-12] MEDS: *HR* Metoprolol 5 MG/5 ML VIAL IVP SCH ×4 (03:35→21:04)
[2021-09-12] MEDS: Acetaminophen 650 MG RECTAL SUPP RC PRN ×2 (04:08→15:52)
[2021-09-12 04:15] LABS: Hypochromasia Present (Not Present); Platelet Estimate Normal (Normal)
[2021-09-12] MEDS: Insulin LISPRO 300 UNITS/3 ML VIAL SUBQ SCH ×3 (07:24→17:25)
[2021-09-12] MEDS: Aspirin 81 MG TAB.CHEW PO SCH (07:25)
[2021-09-12] MEDS: ARIPiprazole 5 MG TABLET PO SCH (07:25)
[2021-09-12] MEDS: Isosorbide MONOnitrate (24 HR) 30 MG TAB.ER.24H PO SCH (07:26)
[2021-09-12] MEDS: BuPROPion XL (24 HR) 150 MG TABLET PO SCH (07:27)
[2021-09-12] MEDS: Cyanocobalamin (B-12) 1,000 MCG/ML VIAL SQ SCH (07:36)
[2021-09-12] MEDS: Nystatin POWDER 30 GM BOTTLE TP SCH ×2 (07:39→21:04)
[2021-09-12] MEDS: Pantoprazole 40 MG VIAL IVP SCH (07:40)
[2021-09-12] MEDS ORDERED: 0.9 % Sodium Chloride 1,000 ML IVC ONE (07:43)
[2021-09-12] MEDS ORDERED: Perflutren Lipid Microsphere 1.3 ML in 0.9 % Sodium Chloride 8.7 ML IVP PRN (07:44)
[2021-09-12] MEDS ORDERED: 0.9 % Sodium Chloride 1,000 ML IVC SCH (07:45)
[2021-09-12] MEDS: Heparin 25,000UNIT/250ML 1/2NS 25,000 UNIT/250 ML IV.SOLN IVC SCH (10:13)
[2021-09-12 11:46] LABS: Calcium 7.9 mg/dL (8.6-10.3); Potassium 3.7 mEq/L (3.5-5.1)
[2021-09-12 13:24] LABS: Transferrin 115 mg/dL (200-400)
[2021-09-12] MEDS ORDERED: D5% in Water 1,000 ML IVC SCH (15:45)
[2021-09-12] MEDS: Ceftaroline Fosamil Acetate 600 MG in 0.9 % Sodium Chloride 50 ML IVPB SCH (15:50)
[2021-09-12] MEDS: DAPTOmycin 650 MG in 0.9 % Sodium Chloride 100 ML IVPB SCH (15:50)
[2021-09-12] MEDS: D5% in Water 1,000 ML IVC SCH (18:33)
[2021-09-12] MEDS: Melatonin 3 MG TABLET PO SCH (20:52)
[2021-09-13] MEDS: Insulin LISPRO 300 UNITS/3 ML VIAL SUBQ SCH ×4 (00:24→18:06)
[2021-09-13] MEDS: Heparin 25,000UNIT/250ML 1/2NS 25,000 UNIT/250 ML IV.SOLN IVC SCH ×2 (00:29→15:23)
[2021-09-13] MEDS: MetroNIDAZOLE 500 MG/100 ML 500 MG/100 ML BAG IVPB SCH ×3 (00:35→17:34)
[2021-09-13] MEDS: Ceftaroline Fosamil Acetate 600 MG in 0.9 % Sodium Chloride 50 ML IVPB SCH ×3 (00:36→16:18)
[2021-09-13] MEDS: *HR* Metoprolol 5 MG/5 ML VIAL IVP SCH ×4 (03:05→19:36)
[2021-09-13 03:41] LABS: Eosinophils % 0.2 %; Nucleated Red Blood Cells 0.3 /100 WBC (0); Red Cell Distribution Width 20.5 % (11.5-14.5)
[2021-09-13 03:42] LABS: Basophils % 0.2 %; Hematocrit 31.2 % (35.3-44.9); Hemoglobin 8.6 g/dL (11.5-15.4); Immature Granulocytes % 1.5 % (0-4); Lymphocytes # 2.3 K/mcL (0.6-4.6); Mean Corpuscular HGB Conc 27.6 g/dL (31.6-35.5); Mean Corpuscular Volume 87.2 fL (83.0-100.0); Mean Platelet Volume 11.1 fL (9.4-12.4); Monocytes # 0.6 K/mcL (0.0-1.3); Monocytes % 5.1 %; Platelet Count 135 K/mcL (140-400); Red Blood Count 3.58 M/mcL (3.82-4.97); White Blood Count 10.9 K/mcL (4.3-11.1)
[2021-09-13 03:44] LABS: Neutrophils # 7.9 K/mcL (1.6-8.9)
[2021-09-13 04:19] LABS: Hypochromasia Present (Not Present); Platelet Estimate Normal (Normal); Poikilocytosis 1+ (Not Present); Target Cells 1+ (Not Present)
[2021-09-13 04:28] LABS: Calcium 7.8 mg/dL (8.6-10.3); Potassium 3.3 mEq/L (3.5-5.1)
[2021-09-13 04:37] LABS: Lambda Qnt Free Light Chains 93.11 mg/L (5.71-26.30)
[2021-09-13] MEDS: Cyanocobalamin (B-12) 1,000 MCG/ML VIAL SQ SCH (08:43)
[2021-09-13] MEDS: Pantoprazole 40 MG VIAL IVP SCH (08:43)
[2021-09-13] MEDS: ARIPiprazole 5 MG TABLET PO SCH (08:44)
[2021-09-13] MEDS: Isosorbide MONOnitrate (24 HR) 30 MG TAB.ER.24H PO SCH (08:45)
[2021-09-13] MEDS: Aspirin 81 MG TAB.CHEW PO SCH (08:45)
[2021-09-13] MEDS: Nystatin POWDER 30 GM BOTTLE TP SCH ×2 (08:46→19:46)
[2021-09-13] MEDS: BuPROPion XL (24 HR) 150 MG TABLET PO SCH (08:46)
[2021-09-13] MEDS: D5% in Water 1,000 ML IVC SCH ×2 (08:54→14:26)
[2021-09-13 12:21] LABS: Kappa Qnt Free Light Chains 135.47 mg/L (3.30-19.40)
[2021-09-13] MEDS: DAPTOmycin 650 MG in 0.9 % Sodium Chloride 100 ML IVPB SCH (16:18)
[2021-09-13] MEDS: Melatonin 3 MG TABLET PO SCH (19:15)
[2021-09-13] MEDS: Acetaminophen 650 MG RECTAL SUPP RC PRN (21:36)
[2021-09-13] MEDS ORDERED: *HR* Metoprolol 5 MG/5 ML VIAL IVP ONE (23:11)
[2021-09-13 23:40] LABS: ANCA IFA Titer <1:20 (<1:20)
[2021-09-14] MEDS: MetroNIDAZOLE 500 MG/100 ML 500 MG/100 ML BAG IVPB SCH ×3 (01:09→17:18)
[2021-09-14] MEDS: Insulin LISPRO 300 UNITS/3 ML VIAL SUBQ SCH ×4 (01:10→17:18)
[2021-09-14] MEDS: Ceftaroline Fosamil Acetate 600 MG in 0.9 % Sodium Chloride 50 ML IVPB SCH ×2 (01:12→14:33)
[2021-09-14] MEDS: *HR* Metoprolol 5 MG/5 ML VIAL IVP SCH ×3 (04:28→15:46)
[2021-09-14] MEDS: Acetaminophen 650 MG RECTAL SUPP RC PRN (04:35)
[2021-09-14 05:15] LABS: Basophils % 0.2 %; Eosinophils % 0.7 %; Immature Granulocytes % 1.4 % (0-4); Mean Corpuscular Volume 88.5 fL (83.0-100.0); Monocytes % 3.3 %; Nucleated Red Blood Cells 0.5 /100 WBC (0)
[2021-09-14 05:16] LABS: Eosinophils # 0.1 K/mcL (0.0-0.6); Hemoglobin 8.2 g/dL (11.5-15.4); Lymphocytes # 2.2 K/mcL (0.6-4.6); Lymphocytes % 18.2 %; Mean Corpuscular HGB Conc 27.3 g/dL (31.6-35.5); Mean Corpuscular Hemoglobin 24.2 pg (28.0-33.3); Mean Platelet Volume 11.6 fL (9.4-12.4); Monocytes # 0.4 K/mcL (0.0-1.3); Neutrophils # 9.3 K/mcL (1.6-8.9); Platelet Count 141 K/mcL (140-400); Red Blood Count 3.39 M/mcL (3.82-4.97); Red Cell Distribution Width 20.6 % (11.5-14.5); Segmented Neutrophils % 76.2 %; White Blood Count 12.2 K/mcL (4.3-11.1)
[2021-09-14 05:20] LABS: Hypochromasia Present (Not Present); Platelet Estimate Normal (Normal)
[2021-09-14 05:36] LABS: Calcium 7.4 mg/dL (8.6-10.3); Magnesium 1.3 mg/dL (1.6-2.6); Phosphorous 2.2 mg/dL (2.7-4.5); Potassium 3.2 mEq/L (3.5-5.1)
[2021-09-14] MEDS: D5% in Water 1,000 ML IVC SCH (09:27)
[2021-09-14] MEDS: Pantoprazole 40 MG VIAL IVP SCH (09:30)
[2021-09-14] MEDS: Cyanocobalamin (B-12) 1,000 MCG/ML VIAL SQ SCH (09:31)
[2021-09-14] MEDS: Nystatin POWDER 30 GM BOTTLE TP SCH (09:45)
[2021-09-14 10:43] LABS: ANCA IFA Pattern NONE DETECTED (None Detected); Serine Protease-3 Antibody 1 AU/mL (0-19)
[2021-09-14] MEDS: Aspirin 81 MG TAB.CHEW PO SCH (11:43)
[2021-09-14] MEDS: ARIPiprazole 5 MG TABLET PO SCH (11:43)
[2021-09-14] MEDS: BuPROPion XL (24 HR) 150 MG TABLET PO SCH (11:45)
[2021-09-14] MEDS ORDERED: Potassium Phosphate 44 MEQ in 0.9 % Sodium Chloride 250 ML IVPB ONE (13:33)
[2021-09-14] MEDS: DAPTOmycin 650 MG in 0.9 % Sodium Chloride 100 ML IVPB SCH (15:45)
[2021-09-14] MEDS: Ceftaroline Fosamil Acetate 400 MG in 0.9 % Sodium Chloride 50 ML IVPB SCH (15:46)
[2021-09-14 22:27] LABS: Alpha 2 Globulin (PEP) 0.89 g/dL (0.48-1.05); Beta Globulin (PEP) 0.59 g/dL (0.48-1.10)
[2021-09-15] MEDS: Nystatin POWDER 30 GM BOTTLE TP SCH ×3 (00:03→19:49)
[2021-09-15] MEDS: Melatonin 3 MG TABLET PO SCH ×2 (00:03→19:51)
[2021-09-15] MEDS: Insulin LISPRO 300 UNITS/3 ML VIAL SUBQ SCH ×4 (00:08→17:43)
[2021-09-15] MEDS ORDERED: Morphine Sulfate 2 MG/ML SYRINGE IVP PRN (00:13)
[2021-09-15] MEDS ORDERED: Scopolamine Patch 1.5 MG PATCH.TD72 TD SCH (00:15)
[2021-09-15] MEDS: MetroNIDAZOLE 500 MG/100 ML 500 MG/100 ML BAG IVPB SCH ×3 (01:06→16:53)
[2021-09-15] MEDS: *HR* Metoprolol 5 MG/5 ML VIAL IVP SCH ×5 (03:37→19:42)
[2021-09-15] MEDS: Ceftaroline Fosamil Acetate 400 MG in 0.9 % Sodium Chloride 50 ML IVPB SCH ×3 (03:37→19:53)
[2021-09-15] MEDS: Acetaminophen 650 MG RECTAL SUPP RC PRN (04:13)
[2021-09-15 05:16] LABS: Basophils % 0.1 %; Nucleated Red Blood Cells 0.6 /100 WBC (0)
[2021-09-15 05:18] LABS: Eosinophils # 0.1 K/mcL (0.0-0.6); Eosinophils % 0.9 %; Hematocrit 27.4 % (35.3-44.9); Hemoglobin 7.5 g/dL (11.5-15.4); Lymphocytes # 1.8 K/mcL (0.6-4.6); Lymphocytes % 15.5 %; Mean Corpuscular HGB Conc 27.4 g/dL (31.6-35.5); Mean Corpuscular Hemoglobin 24.2 pg (28.0-33.3); Mean Corpuscular Volume 88.4 fL (83.0-100.0); Mean Platelet Volume 12.3 fL (9.4-12.4); Monocytes # 0.3 K/mcL (0.0-1.3); Monocytes % 2.9 %; Platelet Count 150 K/mcL (140-400); Red Cell Distribution Width 20.8 % (11.5-14.5); Segmented Neutrophils % 79.6 %; White Blood Count 11.5 K/mcL (4.3-11.1)
[2021-09-15 05:20] LABS: Neutrophils # 9.2 K/mcL (1.6-8.9)
[2021-09-15 05:35] LABS: Hypochromasia Present (Not Present)
[2021-09-15 05:36] LABS: Anisocytosis 1+ (Not Present); Platelet Estimate Normal (Normal)
[2021-09-15 05:38] LABS: Albumin 2.4 g/dL (3.5-5.7); Albumin/Globulin Ratio 0.8 (1.1-2.2); Bilirubin,Total 0.5 mg/dL (0.3-1.0); Calcium 7.1 mg/dL (8.6-10.3); Globulin 3.1 g/dL (2.4-3.5); Magnesium 1.7 mg/dL (1.6-2.6); Phosphorous 3.8 mg/dL (2.7-4.5); Potassium 3.6 mEq/L (3.5-5.1); Total Protein 5.5 g/dL (6.4-8.9)
[2021-09-15] MEDS: D5% in Water 1,000 ML IVC SCH ×2 (06:51)
[2021-09-15] MEDS: ARIPiprazole 5 MG TABLET PO SCH (07:17)
[2021-09-15] MEDS: BuPROPion XL (24 HR) 150 MG TABLET PO SCH (07:18)
[2021-09-15 07:47] LABS: IFE Reflexed IFE Done; Immunoglobulin A 336 mg/dL (68-408); Immunoglobulin G 946 mg/dL (768-1632); Immunoglobulin M 112 mg/dL (35-263)
[2021-09-15] MEDS: Cyanocobalamin (B-12) 1,000 MCG/ML VIAL SQ SCH (08:06)
[2021-09-15] MEDS: Pantoprazole 40 MG VIAL IVP SCH (08:07)
[2021-09-15] MEDS: DAPTOmycin 650 MG in 0.9 % Sodium Chloride 100 ML IVPB SCH (15:42)
[2021-09-16] MEDS: MetroNIDAZOLE 500 MG/100 ML 500 MG/100 ML BAG IVPB SCH ×2 (01:14→09:33)
[2021-09-16] MEDS: Insulin LISPRO 300 UNITS/3 ML VIAL SUBQ SCH ×3 (01:46→17:03)
[2021-09-16] MEDS: *HR* Metoprolol 5 MG/5 ML VIAL IVP SCH ×4 (02:34→19:24)
[2021-09-16] MEDS: Ceftaroline Fosamil Acetate 400 MG in 0.9 % Sodium Chloride 50 ML IVPB SCH (06:05)
[2021-09-16] MEDS: ARIPiprazole 5 MG TABLET PO SCH (07:34)
[2021-09-16] MEDS: BuPROPion XL (24 HR) 150 MG TABLET PO SCH (07:34)
[2021-09-16] MEDS: Cyanocobalamin (B-12) 1,000 MCG/ML VIAL SQ SCH (09:32)
[2021-09-16] MEDS: Pantoprazole 40 MG VIAL IVP SCH (09:33)
[2021-09-16] MEDS: Nystatin POWDER 30 GM BOTTLE TP SCH ×2 (09:33→19:25)
[2021-09-16] MEDS: Acetaminophen 650 MG RECTAL SUPP RC PRN (10:38)
[2021-09-16] MEDS ORDERED: Haloperidol Lactate 5 MG/ML VIAL IVP PRN (12:39)
[2021-09-16] MEDS: Morphine Sulfate 2 MG/ML SYRINGE IVP PRN ×5 (12:49→22:10)
[2021-09-16] MEDS: *HR* LORazepam 2 MG/ML VIAL IVP PRN ×2 (12:49→19:25)
[2021-09-17] MEDS: *HR* Metoprolol 5 MG/5 ML VIAL IVP SCH ×2 (01:46→08:30)
[2021-09-17] MEDS: *HR* LORazepam 2 MG/ML VIAL IVP PRN ×3 (01:46→12:45)
[2021-09-17] MEDS: Morphine Sulfate 2 MG/ML SYRINGE IVP PRN ×6 (01:46→13:34)
[2021-09-17 11:22] VITALS: BP 137/73; PULSE 125; TEMP 102.9; O2SAT 75
[2021-09-17] MEDS: Nystatin POWDER 30 GM BOTTLE TP SCH (11:34)
[2021-09-18 20:41] LABS: APTT (LE Anticoag) 54 sec (32-48); Diluted Russell Viper Venom 42 sec (33-44); LE Coag APTT Mixing 51 sec (32-48); LE Hexagonal Phospholipid Neut NEGATIVE (Negative); PT (LE-Anticoag) 16.2 sec (12.0-15.5); Thrombin Time 14.1 sec (14.7-19.5)
== END 2021-09-17 16:37 | disposition expired | DRG 871 ==
LOC: EMEROOARM 05:25 → 2ANU 05:25 → SUATTDRO 13:36 → 2ANU 14:54 → SUATTDRO 09-09 11:35 → 2NENU 09-10 17:58 → 2ANU 09-16 16:24
PROVIDERS: ADMIT Family Medicine; ATTEND Internal Medicine